=== PATIENT | male | born 1995 ===

== ENCOUNTER 2018-07-09 16:59 | Emergency (ER) | payer MEDICAID ==
[2018-07-09 16:59] VITALS: BMI 26.4
[2018-07-09 17:06] VITALS: BP 124/78; RESP 20; TEMP 97.7; O2SAT 97
[2018-07-09] MEDS ORDERED: Sodium Chloride 0.9% 1,000 ML IV STA (17:12)
[2018-07-09 17:52] LABS: BASO % 0.5 % (0.0-2.0); EOS # 0.1 K/uL (0.0-0.7); EOS % 2.9 % (0.0-4.0); HEMOGLOBIN 15.1 g/dL (12.0-18.0); LYMPH # 2.1 K/uL (1.0-4.3); LYMPH % 41.9 % (20.0-40.0); MEAN CELL VOLUME 90.3 fl (80.0-94.0); MEAN CORPUSCULAR HEMOGLOBIN 29.8 pg (27.0-31.0); MEAN PLATELET VOLUME 7.4 fl (7.2-11.7); MONO # 0.4 K/uL (0.0-0.8); MONO % 8.6 % (0.0-10.0); NEUT # 2.3 K/uL (1.8-7.0); NEUT % 46.1 % (50.0-75.0); NRBC % 0.2 % (0.0-0.0); RBC 5.07 Mil/uL (4.40-5.90); RED CELL DISTRIBUTION WIDTH 13.7 % (11.5-14.5); WHITE BLOOD COUNT 4.9 K/uL (4.8-10.8)
[2018-07-09 18:07] LABS: ALB/GLOB RATIO 1.4 (1.0-2.1); ALBUMIN 4.4 g/dL (3.5-5.0); ALT/SGPT 31 U/L (21-72); AST/SGOT 30 U/L (17-59); BLOOD UREA NITROGEN 13 mg/dl (9-20); GFR NON-AFRICAN AMERICAN > 60
--- NOTE | 2018-07-09 19:12 | ED PDOC ---
HPI: Abdomen Time Seen by Provider: 07/09/18 17:06 Chief Complaint (Nursing): Abdominal Pain Chief Complaint (Provider): Central abdominal pain, months History Per: Patient History/Exam Limitations: no limitations Onset/Duration Of Symptoms: Days Additional Complaint(s): 22 yo male with no medical problems presents for evaluation of intermittent central abdominal cramping and diarrhea over the last few months. Pt states he does not have them at the same time. Pt has not been seem for abdominal issues. PT denies fever/chills. PT able to eat and drinking normally. Normal urination. Past Medical History Reviewed: Historical Data, Nursing Documentation, Vital Signs Vital Signs: Last Vital Signs Temp 97.7 F 07/09/18 17:02 Pulse 104 H 07/09/18 17:02 Resp 20 07/09/18 17:02 BP 124/78 07/09/18 17:02 Pulse Ox 97 07/09/18 17:02 Primary Care Provider: FAMILY PROVIDER,NO - Medical History PMH: Anxiety, Depression Denies: Chronic Kidney Disease - Surgical History Surgical History: Hernia Repair - Family History Family History: States: Unknown Family Hx - Immunization History Hx Tetanus Toxoid Vaccination: No Hx Influenza Vaccination: No Hx Pneumococcal Vaccination: No - Home Medications Home Medications: Ambulatory Orders Medication Instructions Recorded No Known Home Med 02/14/18 - Allergies Allergies/Adverse Reactions: Allergies Allergy/AdvReac Type Severity Reaction Status Date / Time Penicillins Allergy NAUSEA Verified 07/09/18 17:02 risperidone [From Risperdal] Allergy neck Verified 02/14/18 20:02 tightening Review of Systems ROS Statement: Except As Marked, All Systems Reviewed And Found Negative Constitutional: Negative for: Fever, Chills Cardiovascular: Negative for: Chest Pain, Palpitations Respiratory: Negative for: Cough, Shortness of Breath Gastrointestinal: Positive for: Abdominal Pain, Diarrhea. Negative for: Nausea, Vomiting Physical Exam - Reviewed Nursing Documentation Reviewed: Yes Vital Signs Reviewed: Yes - Physical Exam Appears: Positive for: Well, Non-toxic, No Acute Distress Head Exam: Positive for: ATRAUMATIC, NORMAL INSPECTION, NORMOCEPHALIC Skin: Positive for: Normal Color, Warm, DRY Eye Exam: Positive for: Normal appearance ENT: Positive for: Normal ENT Inspection Neck: Positive for: Normal, Painless ROM Cardiovascular/Chest: Positive for: Regular Rate, Rhythm Respiratory: Positive for: Normal Breath Sounds. Negative for: Accessory Muscle Use, Respiratory Distress Gastrointestinal/Abdominal: Positive for: Normal Exam, Soft. Negative for: Tenderness, Organomegaly, Mass Back: Positive for: Normal Inspection Extremity: Positive for: Normal ROM Neurological/Psych: Positive for: Awake, Alert, Normal Tone - Laboratory Results Result Diagrams: 07/09/18 17:48 07/09/18 17:48 Lab Results: Total Bilirubin 0.5 mg/dl (0.2-1.3) 07/09/18 17:48 AST 30 U/L (17-59) 07/09/18 17:48 ALT 31 U/L (21-72) 07/09/18 17:48 Alkaline Phosphatase 64 U/L (38-126) 07/09/18 17:48 Total Protein 7.5 G/DL (6.3-8.2) 07/09/18 17:48 Albumin 4.4 g/dL (3.5-5.0) 07/09/18 17:48 Globulin 3.1 gm/dL (2.2-3.9) 07/09/18 17:48 Albumin/Globulin Ratio 1.4 (1.0-2.1) 07/09/18 17:48 - ECG O2 Sat by Pulse Oximetry: 97 Pulse Ox Interpretation: Normal Medical Decision Making Medical Decision Making: Labs normal. Discussed f/u with GI. Disposition - Clinical Impression Clinical Impression: Abdominal pain - Patient ED Disposition Is Patient to be Admitted: No - Disposition Referrals: Simone Almodovar MD, PhD [Staff Provider] - Disposition: Routine/Home Disposition Time: 19:09 Condition: GOOD Instructions: Acute Abdomen (Belly Pain)
[2018-07-09 19:54] VITALS: PULSE 82
== END 2018-07-09 19:53 | disposition home or self-care (01) ==
LOC: H.ER 16:59 → SUPCPDRO 16:59 → H.ER 19:53
DX: R10.9 Unspecified abdominal pain (principal); Z86.59 Personal history of other mental and behavioral disorders; Z88.0 Allergy status to penicillin; Z88.8 Allergy status to other drugs, medicaments and biological substances
CPT/HCPCS: 80053; 85025; 96360; 99283; J7030